=== PATIENT | male | born 1940 | race Caucasian/White ===

== ENCOUNTER → 2017-05-20 | Outpatient (CLI) | payer OTHER ==
[~2017-05-20] MED LIST: ACETAMINOPHEN PO; AMITRIPTYLINE H25 MG PO; AMITRYPTYLINE PO; ASPIRIN81 MG PO; ATENOLOL PO; BAYER ASPIRIN325 M1 PO; CARAFATE1 G PO; CIPRO PO; DITROPAN XL PO; DOCU SOFT100 M1 PO; DYAZIDE 37.5/251 CAP PO; FAMOTIDINE PO; FISH OIL 1,0001 EAC2 PO; FLOMAX0.4 MG PO; FLONASE16 GM; GINKGO BILOBA120 M2 PO; HYDROCODON-ACE1 EAC1 PO; INDOMETHACIN50 MG PO; KCL PO; LIPITOR PO; LORTAB 7.5-5001 TAB PO; MEDROL PO; MELATONIN3 M4 PO; MELATONIN3 MG PO; MULTI-DAY1 TAB PO; NEXIUM PO; PEPCID AC20 M2 PO; PEPCID40 MG PO; PROSCAR5 MG PO; REQUIP0.25 MG PO; ROPINIROLE HC0.25 MG PO; SENNA PO; SIMVASTATIN40 MG PO; TENORMIN25 MG PO; ZANAFLEX PO; ZANAFLEX2 M1 PO; ZANAFLEX2 M2 PO; ZANAFLEX2 MG PO; ZOCOR PO; ZYLOPRIM100 MG PO
--- NOTE | ~2017-05-20 | CT57 ---
[facility] A Service of [facility] RADIOLOGY TEXT RESULTS PATIENT: SPENCER LY LOCATION: [facility] : 42 UNIT #: [id number] AGE: [address]: Lloyd Kelley MD SEX: M ORDER DR: [id number] [facility] [address]. [place], [place] [address] [id number] O MR#: [id number] Acc #: [id number] NAME: SPENCER LY : 1940 SEX: M STUDY DATE/TIME: 05/20/2017 13:20 UNIT: [facility] ROOM: STUDY DESCRIPTION: CT Chest Wo Cont Attending Physician: Lloyd Kelley M.D. Referring Physician: Lloyd Kelley M.D. Ordering Physician: Lloyd Kelley M.D. Primary Care Physician: Vero Torres M.D. MEDICAL IMAGING REPORT This report is preliminary unless electronic signature is present EXAM CT chest. INDICATIONS Right middle lobe pulmonary malignancy. Restaging. Observation for metastatic disease. TECHNIQUE CT of the thorax without contrast. Coronal and sagittal reconstructions were obtained. This CT exam was performed with one or more of the following radiation dose reduction techniques: automatic exposure control, adjustment of mA and/or kV according to patient size, and iterative reconstruction. COMPARISON CT thorax dated 05/14/2016. FINDINGS Patient is status post right middle lobe resection. No recurrent or residual mass or malignancy is identified. There is a borderline enlarged right suprahilar lymph node measuring 1.1 cm. This is unchanged from the prior study and can be followed. This is unchanged from at least 11/07/2015. There is a central calcifications suggesting this may be a benign calcified lymph node. No pericardial or pleural effusion. Thoracic aorta is normal. No acute osseous abnormalities. IMPRESSION 1. No evidence of recurrent or metastatic disease in the chest. Patient is status post right middle lobectomy. [facility] A Service of [facility] RADIOLOGY TEXT RESULTS PATIENT: SPENCER LY LOCATION: [facility] : 42 UNIT #: [id number] AGE: [address]: Lloyd Kelley MD SEX: M ORDER DR: Dictated by... Ankush Pritchard M.D. THIS IS AN ELECTRONICALLY VERIFIED REPORT Ankush Pritchard M.D. at 05/21/2017 2:50 PM RUSSELL/anastacio TD: 05/20/2017 19:48 JOB #: [id number] MEDICAL IMAGING REPORT Page 1 of 1 COPY
== END | disposition home or self-care (01) ==
LOC: CCAT 12:39
DX: Z08 Encounter for follow-up examination after completed treatment for malignant neoplasm (principal); Z90.2 Acquired absence of lung [part of]; Z85.118 Personal history of other malignant neoplasm of bronchus and lung
CPT/HCPCS: 71250